=== PATIENT | male | born 1955 | race Caucasian/White ===

== ENCOUNTER 2019-06-18 12:19 | Emergency (ER) | payer OTHER ==
[~2019-06-18] VITALS: Ht 172.7 cm; Wt 94.5 kg
[~2019-06-18 12:19] MED LIST: ACET325T33 PO; ASPI-650 PO; ATOR40TA68 PO; CARV6.2579 PO; CLOP75TA28 PO; LANT3I SC; LISI10TA2 PO; NOVMIX SC
[2019-06-18 12:44] VITALS: Ht 172.7 cm; Wt 94.5 kg
[2019-06-18] MEDS ORDERED: LACTATED RINGER'S 1,000 ML IV STA ×2 (13:08→14:24)
[2019-06-18] MEDS ORDERED: PANT40TA3 PO (13:55)
[2019-06-18] MEDS ORDERED: GABA-526 PO (13:55)
[2019-06-18] MEDS ORDERED: SITA1TAB5 PO (13:56)
[2019-06-18] MEDS ORDERED: EMPA10TA PO (13:56)
[2019-06-18] MEDS ORDERED: ASPI81TA52 PO (13:57)
[2019-06-18] MEDS ORDERED: ISOS30TA67 PO (13:57)
[2019-06-18] MEDS ORDERED: INSU100I33 SC (13:57)
[2019-06-18] MEDS ORDERED: NITR0.4T39 SL (13:57)
[2019-06-18] MEDS ORDERED: CARV6.2579 PO (13:58)
[2019-06-18] MEDS ORDERED: CLOP75TA27 PO (13:58)
[2019-06-18] MEDS ORDERED: ATOR40TA68 PO (13:58)
[2019-06-18] MEDS ORDERED: NOVMIX SC ×2 (14:01)
[2019-06-18] MEDS ORDERED: LOPERAMIDE 2 MG CAP PO ONE (14:30)
--- NOTE | 2019-06-18 14:39 | ERD ---
ER Documentation Chief Complaint Chief Complaint c/o mid abdominal pain and diarhea x5 days, noted with low B/P HPI This is a 63-year-old male with a history of hypertension and type 2 diabetes who presents to the emergency room for evaluation of abdominal cramping, and diarrhea for the past 5 days. The patient states that his diarrhea is watery and denies any blood or mucus in the diarrhea. He denies being on any antibiotics. The patient states he has abdominal cramping and localizes to the midportion of his abdomen and he denies any radiation of the. He does state that after he has diarrhea his abdominal cramping does slightly resolved. He denies any chest pain fevers or shortness of breath associated with this and c vanessa to the ER for evaluation. ROS All systems reviewed and are negative except as per history of present illness. Medications Home Meds Reported Medications Insulin Aspart (Novolog Mix (70/30)) 100 Units/Ml Soln, 45 SC AC DINNER, EA 06/18/19 Insulin Aspart (Novolog Mix (70/30)) 100 Units/Ml Soln, 35 SC WITH BREAKFAST, VIAL 06/18/19 Clopidogrel Bisulfate (Clopidogrel) 75 Mg Tablet, 75 MG PO DAILY, #30 TAB 06/18/19 Carvedilol* (Carvedilol*) 6.25 Mg Tablet, 6.25 MG PO BID, #60 TAB 06/18/19 Atorvastatin* (Atorvastatin*) 40 Mg Tablet, 40 MG PO QHS, #30 TAB 06/18/19 Insulin Glargine,Hum.rec.anlog (Basaglar Kwikpen U-100) 100 Unit/1 Ml Ins uln.pen, 35 UNIT SC QHS, EA 06/18/19 Nitroglycerin* (Nitrostat*) 0.4 Mg Tab.subl, 0.4 MG SL Q5MIN PRN for CHEST PAIN, BOTTLE 06/18/19 Aspirin (Low Dose Aspirin) 81 Mg Tablet.dr, 81 MG PO DAILY, #30 TAB 06/18/19 Isosorbide Mononitrate* (Isosorbide Mononitrate*) 30 Mg Tab.er.24h, 30 MG PO DAILY, TAB 06/18/19 Empagliflozin (Jardiance) 10 Mg Tablet, 10 MG PO DAILY, TAB 06/18/19 Sitagliptin Phos/Metformin HCl (Janumet 50-1,000 mg Tablet) 1 Each Tablet, 1 EACH PO BID, TAB 06/18/19 Gabapentin* (Gabapentin*) 600 Mg Tablet, 600 MG PO TID, #90 TAB 06/18/19 Pantoprazole* (Protonix*) 40 Mg Tablet.dr, 40 MG PO DAILY, TAB 06/18/19 Discontinued Reported Medications Insulin Glargine* (Lantus*) 100 Unit/Ml Soln, 30 UNIT SC QHS, #1 VIAL 10/26/16 Insulin Aspart (Novolog Mix (70/30)) 100 Units/Ml Soln, 45 SC QPM, EA 10/26/16 Insulin Aspart (Novolog Mix (70/30)) 100 Units/Ml Soln, 35 SC QAM, VIAL 10/26/16 Aspirin (Aspirin) 81 Mg Tablet, 81 MG PO DAILY 03/29/13 Discontinued Scripts Lisinopril* (Lisinopril*) 10 Mg Tablet, 20 MG PO DAILY for 30 Days, #30 TAB Prov:KEVIN BROWN MD 10/29/16 Clopidogrel Bisulfate (Clopidogrel) 75 Mg Tablet, 75 MG PO DAILY for 30 Days, #30 TAB 2 Refills Prov:KEVIN BROWN MD 10/29/16 Carvedilol* (Carvedilol*) 6.25 Mg Tablet, 6.25 MG PO BID for 14 Days, #30 TAB Prov:KEVIN BROWN MD 10/29/16 Atorvastatin* (Atorvastatin*) 40 Mg Tablet, 40 MG PO HS for 30 Days, #30 TAB Prov:KEVIN BROWN MD 10/29/16 Acetaminophen* (Tylenol*) 325 Mg Tablet, 650 MG PO Q6H PRN for PAIN AND OR ELEVATED TEMP for 1 Day, #1 TAB Prov:KEVIN BROWN MD 10/29/16 Allergies Allergies: Coded Allergies: No Known Allergy (Unverified , 06/18/19) PMhx/Soc History of Surgery: Yes (appendectomy) Anesthesia Reaction: No Hx Neurological Disorder: No Hx Respiratory Disorders: No Hx Cardiac Disorders: Yes (htn, hld) Hx Psychiatric Problems: No Hx Miscellaneous Medical Probl: No Hx Alcohol Use: Yes Hx Substance Use: No Hx Tobacco Use: No Smoking Status: Never smoker Physical Exam Vitals Vital Signs Date Temp Pulse Resp B/P (MAP) Pulse Ox O2 O2 Flow FiO2 Time Delivery Rate 06/18/19 84 13 112/61 96 Room Air 14:34 (78) 06/18/19 97.2 87 20 83/53 (63) 97 12:44 Physical Exam INITIAL VITAL SIGNS: Reviewed by me GENERAL: The patient is well developed and appropriate for usual state of health in no apparent distress HEENT: Dry mucous membranes, pupils equal, round, and reactive to light. EOMI. There is no scleral icterus. NECK: C-spine is soft and supple, there is no meningismus. There is no cervical lymphadenopathy. LUNGS: Clear to auscultation bilaterally. There are no rales, wheezes or rhonchi. HEART: Regular rate and rhythm, no murmurs, clicks, rubs or gallops. ABDOMEN: Epigastric tenderness to palpation, otherwise soft, non-tender, non-distended. Good Figueredo sign, negative McBurney point tenderness there are bowel sounds in all four quadrants. No rebound or guarding. EXTREMITIES: There is no peripheral cyanosis or edema. No focal swelling or erythema. NEUROLOGICAL: The patient moves all four extremities with 5/5 strength. Cranial nerves II - XII are intact. Normal gait. Alert and oriented SKIN: There is no apparent rash or petechiae. HEME/LYMPHATIC: There is no evidence of excessive bruising or lymphedema. PSYCHIATRIC: The patient does not appear anxious or depressed. Result Diagram: 06/18/19 1325 06/18/19 1325 Results 24 hrs Laboratory Tests Test 06/18/19 13:25 White Blood Count 6.5 10^3/ul Red Blood Count 4.46 10^6/ul Hemoglobin 13.8 g/dl Hematocrit 41.1 % Mean Corpuscular Volume 92.2 fl Mean Corpuscular Hemoglobin 30.9 pg Mean Corpuscular Hemoglobin Concent 33.6 g/dl Red Cell Distribution Width 13.3 % Platelet Count 183 10^3/UL Mean Platelet Volume 10.5 fl Immature Granulocytes % 0.300 % Neutrophils % 67.3 % Lymphocytes % 18.5 % Monocytes % 12.6 % Eosinophils % 0.8 % Basophils % 0.5 % Nucleated Red Blood Cells % 0.0 /100WBC Immature Granulocytes # 0.020 10^3/ul Neutrophils # 4.4 10^3/ul Lymphocytes # 1.2 10^3/ul Monocytes # 0.8 10^3/ul Eosinophils # 0.1 10^3/ul Basophils # 0.0 10^3/ul Nucleated Red Blood Cells # 0.0 10^3/ul Prothrombin Time 12.2 Sec Prothrombin Time Ratio 1.0 INR International Normalized Ratio 0.89 Activated Partial Thromboplast Time 22.9 Sec Sodium Level 137 mmol/L Potassium Level 4.1 mmol/L Chloride Level 103 mmol/L Carbon Dioxide Level 17 mmol/L Anion Gap 17 Blood Urea Nitrogen 33 mg/dl Creatinine 1.61 mg/dl Est Glomerular Filtrat Rate mL/min 44 mL/min Glucose Level 325 mg/dl Calcium Level 8.8 mg/dl Total Bilirubin 1.0 mg/dl Direct Bilirubin 0.00 mg/dl Indirect Bilirubin 1.0 mg/dl Aspartate Amino Transf (AST/SGOT) 38 IU/L Alanine Aminotransferase (ALT/SGPT) 46 IU/L Alkaline Phosphatase 56 IU/L Troponin I < 0.012 ng/ml Total Protein 7.7 g/dl Albumin 4.4 g/dl Globulin 3.30 g/dl Albumin/Globulin Ratio 1.33 Lipase 480 U/L Current Medications Medications Dose Sig/Kiley Start Time Status Last (Trade) Ordered Route PRN Stop Time Admin Dose Reason Admin Lactated 1,000 ml @ Q1H STAT 06/18/19 DC 06/18/19 Ringer's 1,000 mls/hr IV 13:08 13:45 06/18/19 14:07 Loperamide 4 mg ONCE ONCE 06/18/19 DC 06/18/19 HCl PO 14:30 14:32 (Imodium Cap) 06/18/19 14:31 Lactated 1,000 ml @ Q1H STAT 06/18/19 06/18/19 Ringer's 1,000 mls/hr IV 14:24 14:32 06/18/19 15:23 Procedures/MDM CT abdomen pelvis without: 1. No hydronephrosis or nephrolithiasis. 2. Coarse calcification in the prostate gland. 3.nonspecific fat stranding within the anterior abdominal subcutaneous fat. Correlate with surgical history. 4. No bowel obstruction. EKG: Rate/Rhythm: [Normal Sinus Rhythm] QRS, ST, T-waves: ST depressions in inferior leads, no ST elevation Impression: Sinus rhythm with ST abnormalities in the inferior leads, no ST elevation,, abnormal EKG This 63-year-old male presents to the emergency room for evaluation of diarrhea and generalized weakness. When the patient came to the emergency room he was slightly hypotensive, however he was not tachycardic and had no complaints of chest pain. His EKG does show some ST depressions in the inferior leads however the patient has no ST elevation. An IV was established the patient was given 2 L of lactated Ringer's. His troponins negative, lab work does demonstrate mild renal insufficiency and mild pancreatitis likely secondary to his diarrhea and mild dehydration. After second liter of lactated Ringer's the patient's blood pressure was 112/64. He is in no acute distress, states he is feeling much better. He was given loperamide in the ER. He is likely suffering from viral diarrhea and will be discharged home with a prescription for loperamide. He was given strict return precautions and does feel comfortable with the plan of care for discharge Departure Diagnosis: Primary Impression: Dehydration, mild Additional Impressions: Acute kidney injury Pancreatitis Diarrhea Condition: Fair JESSIE YBARRA DO Jun 18, 2019 14:39
[2019-06-18] MEDS ORDERED: LOPE2CAP PO (14:45)
[2019-06-18 15:11] VITALS: BP 117/58; PULSE 85; RESP 17
== END 2019-06-18 15:45 | disposition home or self-care (01) ==
LOC: E/R 12:19
DX: E86.0 Dehydration (principal); I10 Essential (primary) hypertension; E11.9 Type 2 diabetes mellitus without complications; N17.9 Acute kidney failure, unspecified; K85.90 Acute pancreatitis without necrosis or infection, unspecified; Z79.4 Long term (current) use of insulin; Z79.01 Long term (current) use of anticoagulants; Z79.82 Long term (current) use of aspirin
CPT/HCPCS: 36415; 74176; 80053; 83690; 84484; 85025; 85610; 85730; 86850; 86900; 86901; 93005; 96360; J7120; Z7502; Z7610